=== PATIENT | female | born 1945 | race Caucasian/White ===

== ENCOUNTER 2016-10-11 02:51 | Inpatient (IN) | payer OTHER, BC ==
[~2016-10-11 02:51] MED LIST: BUPIVACAINE HCL/PF 0.5% (5MG/ML) 10 ML VIAL IJ ONE
--- NOTE | 2016-10-11 03:12 | PDOC ---
History of Present Illness - General Stated Complaint: ABD PAIN Time Seen by Provider: 10/11/16 03:10 Past History - Past Medical History Allergies/Adverse Reactions: Allergies Allergy/AdvReac Type Severity Reaction Status Date / Time bupropion HCl [From Zyban] Allergy Intermediate Hives Unverified 02/24/15 10:35 paroxetine HCl [From Paxil] AdvReac Intermediate Unverified 02/24/15 10:12 Home Medications: Ambulatory Orders Dicyclomine HCl [Bentyl] 10 mg PO TID 04/05/15 Acyclovir 30 gm TP TID 07/14/15 Anemia: No Asthma: No Cancer: No Cardiac Disorders: No CVA: No COPD: No CHF: No Dementia: No Diabetes: No GI Disorders: Yes (IBS,DIVERTICULOSIS,GASTRIC FUNDIC POLYPS,ESOPHAGEAL ULCER) Disorders: Yes (OCCA. VAGINAL HERPES) HTN: No Hypercholesterolemia: Yes Liver Disease: Yes (FATTY LIVER) Seizures: No Thyroid Disease: No - Psycho/Social/Smoking Cessation Hx Smoking History: Current every day smoker Have you smoked in the past 12 months: Yes Number of Cigarettes Smoked Daily: 6 'Breaking Loose' booklet given: 07/17/15 Hx Alcohol Use: No Drug/Substance Use Hx: No Substance Use Type: None Hx Substance Use Treatment: No
--- NOTE | 2016-10-11 03:28 | PDOC ---
History of Present Illness - General History Source: Patient Exam Limitations: No Limitations - History of Present Illness Initial Comments: 10/11/16 03:36 The patient is a 70 year old female with a significant past medical history of IBS who presents to the ED with complaints of abdominal pain for 2 days. The patient reports she cheated on her 2 days ago and since reports epigastric pain radiating to her back that is worsened when laying down. She als reports nausea, dry heaving, and slight shortness of breath associated with present symptoms. She reports multiple episodes of soft stool this morning. Patient states she typically gets these episodes one a year. Denies vomiting or diarrhea. Denies fevers or chills. Denies chest pain and shortness of breath. Denies any other symptoms. Surgical hx: Esophageal hernia repair <Bisi Edwards - Last Filed: 10/11/16 03:36> - General History Source: Patient <Lauri Up - Last Filed: 10/15/16 19:42> - General Chief Complaint: Pain Stated Complaint: ABD PAIN Time Seen by Provider: 10/11/16 03:10 Past History <Bisi Edwards - Last Filed: 10/11/16 03:36> - Past Medical History Anemia: No Asthma: No Cancer: No Cardiac Disorders: No CVA: No COPD: No CHF: No Dementia: No Diabetes: No GI Disorders: Yes (IBS,diverticulosis, gastric fundic polyps, esophageal ulcer) Disorders: Yes (OCCA. Vaginal herpes) HTN: No Hypercholesterolemia: Yes Liver Disease: Yes (Fatty liver) Seizures: No Thyroid Disease: No - Immunization History Immunization Up to Date: No - Psycho/Social/Smoking Cessation Hx Suicidal Ideation: No Smoking History: Current every day smoker Have you smoked in the past 12 months: Yes Number of Cigarettes Smoked Daily: 6 Information on smoking cessation initiated: No 'Breaking Loose' booklet given: 07/17/15 Hx Alcohol Use: No Drug/Substance Use Hx: No Substance Use Type: None Hx Substance Use Treatment: No <Lauri Up - Last Filed: 10/15/16 19:42> - Past Medical History Allergies/Adverse Reactions: Allergies Allergy/AdvReac Type Severity Reaction Status Date / Time bupropion HCl [From Zyban] Allergy Intermediate Hives Verified 10/11/16 03:17 omeprazole [From Prilosec] AdvReac Intermediate Vomiting Verified 10/11/16 03:34 omeprazole magnesium AdvReac Intermediate Vomiting Verified 10/11/16 03:34 [From Prilosec] paroxetine HCl [From Paxil] AdvReac Intermediate Verified 10/11/16 03:17 Home Medications: Ambulatory Orders Dicyclomine HCl [Bentyl] 10 mg PO TID 04/05/15 Acyclovir 30 gm TP TID 07/14/15 Review of Systems - Review of Systems Able to Perform ROS?: Yes Comments:: 10/11/16 03:37 CONSTITUTIONAL: Absent: fever, chills, diaphoresis, generalized weakness, malaise, loss of appetite HEENT: Absent: rhinorrhea, nasal congestion, throat pain, throat swelling, difficulty swallowing, mouth swelling, ear pain, eye pain, visual Changes CARDIOVASCULAR: Absent: chest pain, syncope, palpitations, irregular heart rate, lightheadedness , peripheral edema RESPIRATORY: + shortness of breath Absent: cough, shortness of breath, dyspnea with exertion, orthopnea, wheezing, stridor, hemoptysis GASTROINTESTINAL: + abdominal pain, nausea, dry heaving Absent: abdominal pain, abdominal distension, nausea, vomiting, diarrhea, constipation, melena, hematochezia GENITOURINARY: Absent: dysuria, frequency, urgency, hesitancy, hematuria, flank pain, genital pain MUSCULOSKELETAL: + back pain Absent: myalgia, arthralgia, joint swelling SKIN: Absent: rash, itching, pallor HEMATOLOGIC/IMMUNOLOGIC: Absent: easy bleeding, easy bruising, lymphadenopathy, frequent infections ENDOCRINE: Absent: unexplained weight gain, unexplained weight loss, heat intolerance, cold intolerance NEUROLOGIC: + dizziness Absent: headache, focal weakness or paresthesias, dizziness, unsteady gait, seizure, mental status changes, bladder or bowel incontinence PSYCHIATRIC: Absent: anxiety, depression, suicidal or homicidal ideation, hallucinations. All Other Systems: Reviewed and Negative <Bisi Edwards - Last Filed: 10/11/16 03:36> *Physical Exam - Vital Signs Last Vital Signs Temp Pulse Resp BP Pulse Ox 97.7 F 55 L 20 128/57 97 10/11/16 03:17 10/11/16 03:17 10/11/16 03:17 10/11/16 03:17 10/11/16 03:17 - Physical Exam Comments: 10/11/16 03:37 GENERAL: Well developed, well nourished. Awake and alert. No acute distress. HEENT: Normocephalic, atraumatic. PERRLA, EOMI. No conjunctival pallor. Sclera are non- icteric. Moist mucous membranes. Oropharynx is clear. NECK: Supple. Full ROM. No JVD. Carotid pulses 2+ and symmetric, without bruits. No thyromegaly. NCo lymphadenopathy. CARDIOVASCULAR: Regular rate and rhythm. No murmurs, rubs, or gallops. Distal pulses are 2+ and symmetric. PULMONARY: No evidence of respiratory distress. Lungs clear to auscultation bilaterally. No wheezing, rales or rhonchi. ABDOMINAL:+ Mildly tender Soft. Non-distended. No rebound or guarding. No organomegaly. Normoactive bowel sounds. MUSCULOSKELETAL Normal range of motion at all joints. No bony deformities or tenderness. No CVA tenderness. EXTREMITIES: No cyanosis. No clubbing. No edema. No calf tenderness. SKIN: Warm and dry. Normal capillary refill. No rashes. No jaundice. NEUROLOGICAL: Alert, awake, appropriate. Cranial nerves 2-12 intact. No deficits to light touch and temperature in face, upper extremities and lower extremities. No motor deficits in the in face, upper extremities and lower extremities. Normoreflexic in the upper and lower extremities. Normal speech. Toes are down- going bilaterally. Gait is normal without ataxia. PSYCHIATRIC: Cooperative. Good eye contact. Appropriate mood and affect. <Bisi Edwards - Last Filed: 10/11/16 03:36> - Vital Signs Last Vital Signs Temp Pulse Resp BP Pulse Ox 97.7 F 55 L 20 128/57 97 10/11/16 03:17 10/11/16 03:17 10/11/16 03:17 10/11/16 03:17 10/11/16 03:17 <Lauri Up - Last Filed: 10/15/16 19:42> ED Treatment Course - LABORATORY CBC & Chemistry Diagram: 10/15/16 07:00 10/15/16 07:00 <Lauri Up - Last Filed: 10/15/16 19:42> Medical Decision Making - Medical Decision Making 10/15/16 19:42 Dr. Up: The scribe's documentation has been prepared under my direction and personally reviewed by me in its entirery. I confirm that the note above accurately reflects all work, treatment, procedures, and medical decision making performed by me. <Lauri Up - Last Filed: 10/15/16 19:42> *DC/Admit/Observation/Transfer - Attestations Physician Attestion: 10/11/16 03:37 Documentation prepared by Bisi Edwards, acting as medical program specialist for Lauri Up MD <Bisi Edwards - Last Filed: 10/11/16 03:36> <Lauri Up - Last Filed: 10/15/16 19:42> Diagnosis at time of Disposition: Cholecystectomy planned - Discharge Dispostion Condition at time of disposition: Stable
[2016-10-11] MEDS ORDERED: ONDANSETRON 4 MG/2 ML VIAL IVPUSH STA ×2 (03:32→06:01)
[2016-10-11] MEDS ORDERED: SODIUM CHLORIDE 1,000 ML IV STA ×2 (03:32→11:49)
[2016-10-11] MEDS ORDERED: morphine CARPU-JECT 2 MG/1 ML DISP.SYRIN IVPUSH ONE (03:32)
[2016-10-11] MEDS ORDERED: morphine CARPU-JECT 4 MG/1 ML DISP.SYRIN ONE ×2 (03:47→12:04)
[2016-10-11] MEDS ORDERED: ONDANSETRON 4 MG/2 ML VIAL ONE ×3 (03:47→08:42)
[2016-10-11 03:49] LABS: BASOPHIL 0.6 % (0-2.0); EOSINOPHIL 0.1 % (0-4.5); MCH 29.3 pg (25.7-33.7); MCHC 32.9 g/dl (32.0-36.0); MEAN CELL VOLUME 89.2 fl (80-96); NEUTROPHILS 85.9 % (42.8-82.8); PLATELET COUNT 222 K/MM3 (134-434); RDW 14.1 % (11.6-15.6); WHITE BLOOD COUNT 12.7 K/mm3 (4.0-10.0)
[2016-10-11 04:01] LABS: INR 0.97 (0.82-1.09); PROTHROMBIN TIME (PATIENT) 10.7 SEC (9.98-11.88)
[2016-10-11 04:24] LABS: ALBUMIN 3.9 g/dl (3.4-5.0); AMYLASE 41 U/L (25-115); ANION GAP 12 (8-16); BILIRUBIN,TOTAL 0.5 mg/dL (0.2-1.0); CALCIUM 9.7 mg/dL (8.5-10.1); CO2 26 mmol/L (21-32); CREATININE 0.7 mg/dL (0.55-1.02); GLUCOSE,RANDOM 127 mg/dL (74-106); MAGNESIUM 1.9 mg/dL (1.8-2.4); SGOT/AST 26 U/L (15-37); SGPT/ALT 43 U/L (12-78)
[2016-10-11 04:25] LABS: ALK PHOS 165 U/L (45-117); TROPONIN I < 0.02 ng/ml (0.00-0.05)
[2016-10-11] MEDS ORDERED: PANTOPRAZOLE SODIUM 40 MG in SODIUM CHLORIDE 100 ML IVPB ONE (04:46)
[2016-10-11] MEDS ORDERED: PANTOPRAZOLE SODIUM 100 ML IVPB ONE (05:25)
[2016-10-11] MEDS ORDERED: HYDROmorphone HCL CARPU-JECT 1 MG/1 ML DISP.SYRIN IVPUSH ONE (06:01)
[2016-10-11] MEDS ORDERED: HYDROmorphone HCL CARPU-JECT 1 MG/1 ML DISP.SYRIN ONE (06:14)
[2016-10-11 06:31] LABS: URINE APPEARANCE CLEAR; URINE BILIRUBIN NEGATIVE (NEGATIVE); URINE BLOOD NEGATIVE (NEGATIVE); URINE COLOR STRAW; URINE GLUCOSE (UA) NEGATIVE (NEGATIVE); URINE KETONE 2+ (NEGATIVE); URINE LEUK ESTERASE NEGATIVE (NEGATIVE); URINE NITRITE NEGATIVE (NEGATIVE); URINE PROTEIN NEGATIVE (NEGATIVE); URINE UROBILINOGEN NEGATIVE mg/dL (0.2-1.0)
[2016-10-11] MEDS ORDERED: ONDANSETRON 4 MG/2 ML VIAL IVPUSH ONE (08:40)
[2016-10-11] MEDS ORDERED: ACETAMINOPHEN 1000 MG/100 ML VIAL (NON FORMULARY) IVPB ONE (08:40)
[2016-10-11] MEDS ORDERED: ACETAMINOPHEN INJECTION 100 ML IVPB ONE (08:42)
--- NOTE | 2016-10-11 09:20 | PDOC ---
*Physical Exam - Vital Signs Last Vital Signs Temp Pulse Resp BP Pulse Ox 98.6 F 74 18 140/74 97 10/11/16 07:15 10/11/16 07:15 10/11/16 07:15 10/11/16 07:15 10/11/16 07:15 ED Treatment Course - LABORATORY CBC & Chemistry Diagram: 10/11/16 03:45 10/11/16 03:45 - ADDITIONAL ORDERS Additional order review: Laboratory Results 10/11/16 10/11/16 10/11/16 06:25 03:45 03:45 INR 0.97 Sodium 140 Potassium 3.7 Chloride 102 Carbon Dioxide 26 Anion Gap 12 BUN 22 H Creatinine 0.7 Creat Clearance w eGFR > 60 Random Glucose 127 H Calcium 9.7 Magnesium 1.9 Total Bilirubin 0.5 AST 26 ALT 43 Alkaline Phosphatase 165 H Creatine Kinase 103 Troponin I < 0.02 Total Protein 7.0 Albumin 3.9 Total Amylase 41 Lipase 100 Urine Color Straw Urine Appearance Clear Urine pH 6.0 Urine Protein Negative Urine Glucose (UA) Negative Urine Ketones 2+ H Urine Blood Negative Urine Nitrite Negative Urine Bilirubin Negative Urine Urobilinogen Negative Ur Leukocyte Esterase Negative 10/11/16 03:45 RBC 4.11 MCV 89.2 MCHC 32.9 RDW 14.1 MPV 8.0 Neutrophils % 85.9 H Lymphocytes % 11.4 Monocytes % 2.0 L Eosinophils % 0.1 Basophils % 0.6 - Medications Given in the ED: ED Medications Discontinued Medications Generic Name Dose Route Start Last Admin Trade Name Libertad PRN Reason Stop Dose Admin Acetaminophen 1,000 mg 10/11/16 08:40 10/11/16 08:48 Ofirmev Injection - IVPB 10/11/16 08:41 1,000 mg ONCE ONE Administration Hydromorphone HCl 0.5 mg 10/11/16 06:01 10/11/16 06:26 Dilaudid Injection - IVPUSH 10/11/16 06:02 0.5 mg ONCE ONE Administration Sodium Chloride 1,000 mls @ 1,000 mls/hr 10/11/16 03:32 10/11/16 03:57 Normal Saline - IV 10/11/16 04:31 1,000 mls/hr ASDIR STA Administration Pantoprazole Sodium 40 mg/ 100 mls @ 200 mls/hr 10/11/16 04:46 10/11/16 05:31 Sodium Chloride IVPB 10/11/16 05:15 200 mls/hr ONCE ONE Administration Morphine Sulfate 2 mg 10/11/16 03:32 10/11/16 03:56 Morphine Injection - IVPUSH 10/11/16 03:33 2 mg ONCE ONE Administration Ondansetron HCl 4 mg 10/11/16 03:32 10/11/16 03:57 Zofran Injection IVPUSH 10/11/16 03:33 4 mg ONCE STA Administration Ondansetron HCl 4 mg 10/11/16 06:01 10/11/16 06:27 Zofran Injection IVPUSH 10/11/16 06:02 4 mg ONCE STA Administration Ondansetron HCl 4 mg 10/11/16 08:40 10/11/16 08:48 Zofran Injection IVPUSH 10/11/16 08:41 4 mg ONCE ONE Administration Medical Decision Making - Medical Decision Making 10/11/16 09:19 Patient is a 70F signed out to me from night team, Dr. Up. US has returned stating: mildly distended gallbladder w/ multiple calculi. No evidence of choclecystitis. 10/11/16 09:48 I have discussed the US findings with the patient. She states that she is still in pain. GI dr: Ravin Lang at [facility] No gen surgeon Have paged Dr. Lang and am awaiting call back. Patient had + sonographic nichole sign. Exam revealed RUQ tenderness. 10/11/16 10:56 I have spoken with Dr. Christianson and he has accepted admission to do cholecytectomy tonight. Will admit to hospitalist and consult him. 10/11/16 11:00 Surgery and admitting team want a dose of Zosyn in ER, T+S, PT, PTT, INR. I have ordered all of the mentioned. *DC/Admit/Observation/Transfer Diagnosis at time of Disposition: Cholecystectomy planned - Discharge Dispostion Condition at time of disposition: Stable Admit: Yes - Referrals Referrals: Ravin Lang [Primary Care Provider] - - Patient Instructions - Post Discharge Activity
--- NOTE | 2016-10-11 09:36 | PDOC ---
Attending Attestation - Resident Resident Name: Kenney Love - ED Attending Attestation I have performed the following: I have examined & evaluated the patient, The case was reviewed & discussed with the resident, I agree w/resident's findings & plan, Exceptions are as noted - HPI HPI: 10/11/16 09:31 70 yo F with h/o prior gallstones here with n/v abd pain. signed out to me by dr. vega. assumed care of pt at 8 am ( along with Dr. Love) .pt pending ruq ultrasound. followed by Gi dr. corral at [place]. 9 PH [phone]. had seen surgeon many years ago, but at that time didn't feel she had severe enough sxs to warrant cholecystectomy. 10/11/16 09:54 - Physicial Exam PE: 10/11/16 09:33 on exam awake alert, lungs clear , heart RRR no mrg abd soft RUQ ttp, no rebound no guarding. ND skin warm and dry. ext wwp. 10/11/16 09:56 - Medical Decision Making 10/11/16 09:34 await labs gb us, jolynn admit due to persistant pain 10/11/16 09:56 pt ultrasound with large gallstones, no wall thickening or signs of cholecystitis. ct reviewed, concerning for cholecystitis. elevated wbc 14. plan consult surgery , admit to medicine pt pcp not here. will contact pt GI. Heart Score/ECG Review #1 ECG reviewed & interpreted by me at: 11:40 General ECG Interpretation: Sinus Rhythm, Normal Rate (55), Normal Intervals, No acute ischemic changes
[2016-10-11] MEDS ORDERED: PIPERACILLIN/TAZOB 3.375 GM/50 ML PRE-DOCKED IV ONE (10:58)
[2016-10-11] MEDS ORDERED: PIPERACILLIN/TAZOB 3.375 GM 50 ML IVPB ONE (11:09)
[2016-10-11] MEDS ORDERED: morphine CARPU-JECT 4 MG/1 ML DISP.SYRIN IVPUSH PRN ×3 (11:16→17:55)
[2016-10-11] MEDS ORDERED: ONDANSETRON 4 MG/2 ML VIAL IVPUSH PRN ×2 (11:18→17:55)
--- NOTE | 2016-10-11 11:18 | HP ---
Admitting History and Physical - Admission Chief Complaint: abdominal pain History of Present Illness: 70F with history of gall stones presents to the ED with a 1 day history of abdominal pain in the RUQ. she states this is similar to pain she has had in the past. She denies vomiting fevers chills chest pain or shortness of breath. States she had some dry heraving. Pain resolved with pain medications per patient. She denies all other symptoms and has no other complaints. She states she has been eating a high fat low carbohydrate "Atkins diet" for her gallbladder. Patient stopped taking her statin a few months ago because she has "trouble digesting" it. History Source: Patient Limitations to Obtaining History: Clinical Condition - Past Medical History Additional Past Medical History: IBS,diverticulosis, gastric fundic polyps, esophageal ulcer genital herpes GERD HLD - Past Surgical History Additional Past Surgical History: esophageal hernia repair C section - Smoking History Smoking history: Current every day smoker Have you smoked in the past 12 months: Yes Aproximately how many cigarettes per day: 6 - Alcohol/Substance Use Hx Alcohol Use: No History of Substance Use: reports: None Home Medications - Allergies Allergies/Adverse Reactions: Allergies Allergy/AdvReac Type Severity Reaction Status Date / Time bupropion HCl [From Zyban] Allergy Intermediate Hives Verified 10/11/16 03:17 omeprazole [From Prilosec] AdvReac Intermediate Vomiting Verified 10/11/16 03:34 omeprazole magnesium AdvReac Intermediate Vomiting Verified 10/11/16 03:34 [From Prilosec] paroxetine HCl [From Paxil] AdvReac Intermediate Verified 10/11/16 03:17 - Home Medications Home Medications: Ambulatory Orders Dicyclomine HCl [Bentyl] 10 mg PO TID 04/05/15 Acyclovir 30 gm TP TID 07/14/15 Family Disease History - Family Disease History Family Disease History: CA: Father (brain tumor ), Mother (colon ) Review of Systems - Review of Systems Constitutional: reports: Loss of Appetite Eyes: reports: No Symptoms HENT: reports: No Symptoms Neck: reports: No Symptoms Cardiovascular: reports: No Symptoms Respiratory: reports: No Symptoms Gastrointestinal: reports: Abdominal Pain, Indigestion, Nausea, Other ("heart burn") Genitourinary: reports: No Symptoms Breasts: reports: No Symptoms Reported Musculoskeletal: reports: No Symptoms Integumentary: reports: No Symptoms Neurological: reports: No Symptoms Endocrine: reports: No Symptoms Hematology/Lymphatic: reports: No Symptoms Psychiatric: reports: Anxiety Physical Examination Vital Signs: Vital Signs Temperature 98.6 F 10/11/16 07:15 Pulse Rate 74 10/11/16 07:15 Respiratory Rate 18 10/11/16 07:15 Blood Pressure 140/74 10/11/16 07:15 O2 Sat by Pulse Oximetry (%) 97 10/11/16 07:15 Constitutional: Yes: Well Nourished, No Distress, Anxious Eyes: Yes: Conjunctiva Clear, EOM Intact HENT: Yes: Atraumatic, Normocephalic Neck: Yes: Supple, Trachea Midline Cardiovascular: Yes: Regular Rate and Rhythm Respiratory: Yes: Regular, CTA Bilaterally Gastrointestinal: Yes: Normal Bowel Sounds, Soft, Abdomen, Obese. No: Tenderness Renal/: Yes: WNL. No: CVA Tenderness - Left, CVA Tenderness - Right Musculoskeletal: Yes: WNL Extremities: Yes: WNL Neurological: Yes: Alert, Oriented ...Motor Strength: WNL Psychiatric: Yes: Alert, Oriented Labs: CBC, BMP 10/11/16 03:45 10/11/16 03:45 Imaging - Results Cat Scan: Report Reviewed, Image Reviewed Ultrasound: Report Reviewed, Image Reviewed EKG: Pending Assessment/Plan 70F presents to the ED with biliary colic. Problem list: Biliary colic h/o gallstones pre-diabetes leukocytosis hyperglycemia HLD IBS anxiety diverticulosis gastric fundic polyps, esophageal ulcer genital herpes GERD Plan: Admit to med surg surgery consult plan to go to OR today for cholecystectomy EKG pre-op coags type and screen NPO Verify home meds GI/VTE PPx pain control PRN Antiemetics PRN Leukocytosis-likely [id number] no signs or symptoms of infection. One dose of zosyn en route to the OR. hyperglycemia-prediabetes has good follow up with PMD will defer to PMD for hyperglycemia will do fingersticks q6h while NPO to trend BGM hold off in ISS coverage for now. 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 Case discussed with attending and medical team full H&P to follow. Visit type - Emergency Visit Emergency Visit: Yes Care time: The patient presented to the Emergency Department on the above date and was hospitalized for further evaluation of their emergent condition. - New Patient This patient is new to me today: Yes Date on this admission: 10/11/16 - Critical Care Critical Care patient: No
[2016-10-11 11:54] LABS: INR 0.98 (0.82-1.09); PROTHROMBIN TIME (PATIENT) 10.8 SEC (9.98-11.88)
[2016-10-11 11:57] LABS: ACTIVATED PTT 21.4 SECONDS (26.9-34.4)
[2016-10-11] MEDS ORDERED: SODIUM CHLORIDE 1,000 ML IV SCH (12:00)
--- NOTE | 2016-10-11 12:45 | CONSULT ---
- Consultation REQUESTING PROVIDER: Twin METCALF CONSULT REQUEST: We have been asked to surgically evaluate this patient for ( specify). PCP:Olivia Dhaliwal HISTORY OF PRESENT ILLNESS: CTSP who is a 70 y/o female w/known cholelithiasis who presented w/ n/v and RUQ abdominal pain; she has had this in the past and told she " maybe needed surgery " which she did not; she came to the ER # after eating steak and experiencing the above c/o's; she denies dark urine/light stools or any other GI c/o; pain is stabbing and unrelenting and associated w/ nausea and belching; it radiated to her back and right shoulder. PMHx: GERD/refulx/IBS PSHx: C-S Home Medications Medication Instructions Recorded Dicyclomine HCl [Bentyl] 10 mg PO TID 04/05/15 Acyclovir 30 gm TP TID 07/14/15 Allergies Allergy/AdvReac Type Severity Reaction Status Date / Time bupropion HCl [From Zyban] Allergy Intermediate Hives Verified 10/11/16 03:17 omeprazole [From Prilosec] AdvReac Intermediate Vomiting Verified 10/11/16 03:34 omeprazole magnesium AdvReac Intermediate Vomiting Verified 10/11/16 03:34 [From Prilosec] paroxetine HCl [From Paxil] AdvReac Intermediate Verified 10/11/16 03:17 REVIEW OF SYSTEMS: as above only PHYSICAL EXAM: GENERAL: Awake, alert, and fully oriented, in no acute distress. HEAD: Normal with no signs of trauma. EYES: sclera anicteric, conjunctiva clear. NECK: Normal ROM, supple without lymphadenopathy, JVD, or masses. ABDOMEN: Soft, tender to deep palpation in the RUQ w/inspiratory arrest, not distended, normoactive bowel sounds, no guarding, no rebound, no masses. No organomegaly. No hernias MUSCULOSKELETAL: Normal ROM at all joints. No bony deformities or tenderness. No CVA tenderness. UPPER EXTREMITIES: 2+ pulses, warm, well-perfused. No cyanosis. Cap refill <2 seconds. No peripheral edema. LOWER EXTREMITIES: 2+ pulses, warm, well-perfused. No calf tenderness. No peripheral edema. NEUROLOGICAL: Normal speech, gait not observed. PSYCH: Cooperative. Good eye contact. Appropriate mood and affect. SKIN: Warm, dry, normal turgor, no rashes or lesions noted. Vital Signs Temperature 98.6 F 10/11/16 07:15 Pulse Rate 74 10/11/16 07:15 Respiratory Rate 18 10/11/16 07:15 Blood Pressure 140/74 10/11/16 07:15 O2 Sat by Pulse Oximetry (%) 97 10/11/16 07:15 Lab Results WBC 12.7 K/mm3 (4.0-10.0) H 10/11/16 03:45 RBC 4.11 M/mm3 (3.60-5.2) 10/11/16 03:45 Hgb 12.0 GM/dL (10.7-15.3) 10/11/16 03:45 Hct 36.6 % (32.4-45.2) 10/11/16 03:45 MCV 89.2 fl (80-96) 10/11/16 03:45 MCHC 32.9 g/dl (32.0-36.0) 10/11/16 03:45 RDW 14.1 % (11.6-15.6) 10/11/16 03:45 Plt Count 222 K/MM3 (134-434) 10/11/16 03:45 Sodium 140 mmol/L (136-145) 10/11/16 03:45 Potassium 3.7 mmol/L (3.5-5.1) 10/11/16 03:45 Chloride 102 mmol/L (98-107) 10/11/16 03:45 Carbon Dioxide 26 mmol/L (21-32) 10/11/16 03:45 Anion Gap 12 (8-16) 10/11/16 03:45 BUN 22 mg/dL (7-18) H 10/11/16 03:45 Creatinine 0.7 mg/dL (0.55-1.02) 10/11/16 03:45 Random Glucose 127 mg/dL (74-106) H 10/11/16 03:45 Calcium 9.7 mg/dL (8.5-10.1) 10/11/16 03:45 INR 0.98 (0.82-1.09) 10/11/16 11:20 CT scan and US reviewed; w/u to date reviewed. IMP: acute cholecystitis; cholelithiasis PLAN: Discussion of admission and lap wm possible open as definitive tx.; r/b /t alternatives d/w the patient who wishes to proceed. Finn Christianson MD FACS Visit type - Case Type Case Type: ED Admission - Emergency Emergency Visit: Yes ED Registration Date: 10/11/16 Care time: The patient presented to the Emergency Department on the above date and was hospitalized for further evaluation of their emergent condition. - New patient This patient is new to me today: Yes Date on this admission: 10/11/16 - Critical Care Critical Care patient: No
[2016-10-11] MEDS ORDERED: PROPOFOL 20 ML ONE ×3 (13:24→16:53)
--- NOTE | 2016-10-11 13:45 | HP ---
CHIEF COMPLAINT: abdominal pain radiating to back PCP: HISTORY OF PRESENT ILLNESS: 70 y/o F with PMH IBS, gallstones, past episodes of biliary colic (dx by Dr. Lang, [facility]), who presents to ED with RUQ abdominal pain. As per pt, at 6pm yesterday, she took Bentyl for IBS, and then at 5 am this morning, pt developed sudden, constant RUQ pain radiating to the back. Pain is 10/10, colicky, and is associated with dry heaving and nausea, and is not related to food. Her movement is limited and it is difficult for her to lay on her back comfortably. Pain was not relieved by Tums, Mili [place] or Tylenol and is accompanied by SOB and palpitations. Episode is similar to pain in the past, which would subside within 4-5 hours. However, this episode was more severe, lasting longer, so pt decided to come to the hospital. Pt follows with GI, Dr. Lang from [facility] and has been told that her past episodes were not severe enough to warrant cholecystectomy. ER course was notable for: (1) morphine, dilaudid (2) Abd/pelvis CT: abnormal GB, r/o cholecystitis, recommend U/S (3) RUQ U/S: mildly distended GB with multiple calculi, no sonographic evidence of acute cholecystitis Recent Travel: no PAST MEDICAL HISTORY: IBS, gallstones, past biliary colic episodes, pre-diabetes PAST SURGICAL HISTORY: esophageal hernia repair, Social History: Smoking: smokes half pack per day for 20 years Alcohol: denies Drugs: denies Family History: Allergies bupropion HCl [From Zyban] Allergy (Intermediate, Verified 10/11/16 03:17) Hives omeprazole [From Prilosec] Adverse Reaction (Intermediate, Verified 10/11/16 03: 34) Vomiting omeprazole magnesium [From Prilosec] Adverse Reaction (Intermediate, Verified 03:34) Vomiting paroxetine HCl [From Paxil] Adverse Reaction (Intermediate, Verified 10/11/16 03 :17) nausea, vomiting HOME MEDICATIONS: Home Medications Medication Instructions Recorded Dicyclomine HCl [Bentyl] 10 mg PO TID 04/05/15 Acyclovir 30 gm TP TID 07/14/15 Note: Pt also takes 11 supplements, of which she remembers: B12, D3, Co Q10, probiotics, DHEA. Used to take Crestor but irritates her stomach Pharmacy: [facility] [place] [phone] REVIEW OF SYSTEMS CONSTITUTIONAL: Absent: fever, chills, diaphoresis, generalized weakness, malaise, loss of appetite, weight change HEENT: Absent: rhinorrhea, nasal congestion, throat pain, throat swelling, difficulty swallowing, mouth swelling, ear pain, eye pain, visual changes CARDIOVASCULAR: +palpitations Absent: chest pain, syncope, palpitations, irregular heart rate, lightheadedness , peripheral edema RESPIRATORY: +shortness of breath Absent: cough, shortness of breath, dyspnea with exertion, orthopnea, wheezing, stridor, hemoptysis GASTROINTESTINAL: +abdominal pain Absent: abdominal pain, abdominal distension, nausea, vomiting, diarrhea, constipation, melena, hematochezia GENITOURINARY: Absent: dysuria, frequency, urgency, hesitancy, hematuria, flank pain, genital pain MUSCULOSKELETAL: Absent: myalgia, arthralgia, joint swelling, back pain, neck pain SKIN: Absent: rash, itching, pallor HEMATOLOGIC/IMMUNOLOGIC: Absent: easy bleeding, easy bruising, lymphadenopathy, frequent infections ENDOCRINE: Absent: unexplained weight gain, unexplained weight loss, heat intolerance, cold intolerance NEUROLOGIC: Absent: headache, focal weakness or paresthesias, dizziness, unsteady gait, seizure, mental status changes, bladder or bowel incontinence PSYCHIATRIC: Absent: anxiety, depression, suicidal or homicidal ideation, hallucinations. PHYSICAL EXAMINATION GENERAL: Awake, alert, and fully oriented, in acute distress HEAD: Normal with no signs of trauma. EYES: Pupils equal, round and reactive to light, extraocular movements intact, sclera anicteric, conjunctiva clear. EARS, NOSE, THROAT: oropharynx clear without exudates. Moist mucous membranes. NECK: Normal range of motion, no JVD LUNGS: Breath sounds equal, clear to auscultation bilaterally. No wheezes, and no crackles. No accessory muscle use. HEART: Regular rate and rhythm, normal S1 and S2 without murmur, rub or gallop. ABDOMEN: RUQ tender to palpation, no distension, + Art's sign, voluntary guarding, +BS MUSCULOSKELETAL: Normal range of motion at all joints. No bony deformities or tenderness. No CVA tenderness. UPPER EXTREMITIES: 2+ radial pulses, warm, well-perfused LOWER EXTREMITIES: 2+ posterior tibial pulses, warm, well-perfused. No calf tenderness. No peripheral edema. NEUROLOGICAL: Cranial nerves II-XII intact. Laboratory Results - last 24 hr 10/11/16 10/11/16 11:20 11:20 INR 0.98 PTT (Actin FS) 21.4 L Blood Type O POSITIVE Antibody Screen Negative ASSESSMENT/PLAN: 70 y/o F w/ PMH IBS, gallstones, past episodes of biliary colic, who presents to ED with RUQ pain radiating to the back. Pt is admitted for biliary colic, cholelithiasis 1. Biliary colic, cholelithiasis -RUQ abdominal pain, radiating to back -Abdomen/pelvis CT: abnormal GB, r/o cholecystitis, recommend U/S -RUQ U/S: mildly distended GB with multiple calculi, no sonographic evidence of acute cholecystitis -Leukocytosis 12.1, afebrile, ALP 165 -NPO -Surgery consulted: Dr. Christianson -Yareli wm to be performed 10/11/16 afternoon -Zofran PRN -Morphine 2mg IVP q4 PRN -Type and screen, PT/PTT, INR ordered -Zosyn 3.375 mg given 1x in ED -F/u CBC, BMP, Mg, Phosph 2. IBS -Currently holding Bentyl (continue after surgery) 3. HLD -Pt stopped taking Crestor, since it irritated her stomach -Has not taken it recently 4. Pre-diabetic (as per pt) -BGM q6 -Hold ISS 5. DVT/ GI prophylaxis -SCD's -Heparin 5000 SQ q8 -Protonix 40mg F/E/N IV NS 83 mls/hr Monitor electrolytes NPO Visit type - Emergency Visit Emergency Visit: Yes ED Registration Date: 10/11/16 Care time: The patient presented to the Emergency Department on the above date and was hospitalized for further evaluation of their emergent condition. - New Patient This patient is new to me today: Yes Date on this admission: 10/11/16 - Critical Care Critical Care patient: No
[2016-10-11] MEDS ORDERED: DICYCLOMINE HCL 10 MG CAPSULE PO SCH (14:00)
[2016-10-11 14:05] VITALS: BMI 26.8
[2016-10-11] MEDS ORDERED: PNEUMOC 13-VAL CONJ-DIP CRM/PF 0.5 ML DISP.SYRIN IM ONE (14:05)
[2016-10-11] MEDS ORDERED: BUPIVACAINE HCL/PF 0.5% (5MG/ML) 10 ML VIAL ONE (14:10)
[2016-10-11] MEDS ORDERED: BUPIVACAINE HCL/PF 0.5% (5MG/ML) 10 ML VIAL IJ ONE (15:00)
[2016-10-11] MEDS ORDERED: VECURONIUM BROMIDE 10 MG VIAL ONE (15:18)
[2016-10-11] MEDS ORDERED: SODIUM CHLORIDE 0.9% P/F 10 ML VIAL IJ ONE (15:18)
[2016-10-11] MEDS ORDERED: NEOSTIGMINE METHYLSULFATE 0.5 MG/ML - 10 ML MDV ONE (16:33)
[2016-10-11] MEDS ORDERED: GLYCOPYRROLATE 0.2 MG/1 ML VIAL ONE ×2 (16:35→16:36)
[2016-10-11] MEDS ORDERED: oxyCODONE HCL 5 MG TABLET PO PRN (17:17)
[2016-10-11] MEDS ORDERED: PROMETHAZINE HCL 25 MG/1 ML VIAL IVPUSH PRN (17:22)
--- NOTE | 2016-10-11 17:24 | SURG ---
Surgery Housekeeper Manager Note Housekeeper Manager: Laina Leblanc PA-C Date of Service: 10/11/16 Diagnosis: acute cholecystitis Procedure: laparoscopic cholecystectomy with lysis of adhesions I was present for the entirety of the operative procedure. For further detail, please refer to operative report. Visit type - Case Type Case Type: ED Admission - Emergency Emergency Visit: Yes ED Registration Date: 10/11/16 Care time: The patient presented to the Emergency Department on the above date and was hospitalized for further evaluation of their emergent condition. - New patient This patient is new to me today: Yes Date on this admission: 10/11/16 - Critical Care Critical Care patient: No
--- NOTE | 2016-10-11 17:28 | OP ---
Operative Note - Note: Operative Date: 10/11/16 Pre-Operative Diagnosis: acute cholecystis ; cholelithiasis Operation: lap wm Findings: acute cholecystitis/cholelithiasis Surgeon: Finn Christianson Tourist Information Officer: Laina Leblanc Anesthesia: General Specimens Removed: gallbladder and contents Estimated Blood Loss (mls): 100 Drains & Tubes with Location: 10 mm RIKKI
[2016-10-11] MEDS ORDERED: LACTATED RINGERS SOLUTION 1,000 ML IV SCH (17:30)
--- NOTE | 2016-10-11 17:38 | PN ---
Teaching Attending Note Name of Resident: Daniela Martinez ATTENDING PHYSICIAN STATEMENT I saw and evaluated the patient. I reviewed the resident's note and discussed the case with the resident. I agree with the resident's findings and plan as documented. pt is seen s/p cholecystectomy SUBJECTIVE:currently drowsy. states she has no pain. had episode of acute cholecystitis in the past several years ago was treated but there was no discussion of having her gallbladder removed. denies CP, SOB< fever, chills, N/V /C/D OBJECTIVE: Last Vital Signs Temp Pulse Resp BP Pulse Ox 98.0 F 59 L 18 114/63 95 10/11/16 12:00 10/11/16 13:00 10/11/16 13:00 10/11/16 13:00 10/11/16 13:00 General lethargic but responds to verbal stimuli CV S1 S2 RRR no murmur/rub/gallop Lungs CTA B/L no wheezing/rales/rhonchi anteriorly ABdomen +distention, tenderness +RUQ drain in place. bandages over surgical incision ASSESSMENT AND PLAN: 70yo F wtih PMH IBS, GERD, dyslipidemia presented to the ER with RUQ x1day and found to have acute cholecystitis 1. Acute Cholecystitis- medicine admission. s/p laprascopic cholecystectomy with RIKKI drain placed. advance diet per surgery. no indication for abx at this time. received zosyn pre-op. cont IVF until maintaining good oral intake. pain and nausea control 2. Genital herpes- hold acycolvir at this time. confirm home meds. clarify if she takes prophylactic daily medications 3. DVT ppx- hep sq post-op
[2016-10-11] MEDS ORDERED: HEPARIN NA (PORCINE) 5,000 UNITS/ML 1ML VIAL SQ SCH (18:00)
[2016-10-11] MEDS: SODIUM CHLORIDE 1,000 ML IV SCH (18:15)
[2016-10-11] MEDS: HEPARIN NA (PORCINE) 5,000 UNITS/ML 1ML VIAL SQ SCH (21:23)
[2016-10-12] MEDS: SODIUM CHLORIDE 1,000 ML IV SCH (02:29)
[2016-10-12] MEDS: ACETAMINOPHEN 325 MG TABLET (FP) PO PRN ×2 (02:31→13:50)
[2016-10-12] MEDS: HEPARIN NA (PORCINE) 5,000 UNITS/ML 1ML VIAL SQ SCH ×3 (06:01→22:13)
[2016-10-12 07:44] LABS: MCH 29.8 pg (25.7-33.7); MCHC 32.9 g/dl (32.0-36.0); MEAN CELL VOLUME 90.6 fl (80-96); MEAN PLT VOLUME 8.5 fl (7.5-11.1); PLATELET COUNT 195 K/MM3 (134-434); RDW 14.1 % (11.6-15.6); WHITE BLOOD COUNT 14.5 K/mm3 (4.0-10.0)
[2016-10-12 07:56] LABS: ALBUMIN 2.8 g/dl (3.4-5.0); ANION GAP 8 (8-16); BILIRUBIN,TOTAL 1.5 mg/dL (0.2-1.0); CALCIUM 8.1 mg/dL (8.5-10.1); CO2 28 mmol/L (21-32); CREATININE 0.7 mg/dL (0.55-1.02); GLUCOSE,RANDOM 102 mg/dL (74-106); MAGNESIUM 1.6 mg/dL (1.8-2.4); PHOSPHOROUS 2.7 mg/dL (2.5-4.9); SGOT/AST 60 U/L (15-37); SGPT/ALT 88 U/L (12-78); TOT PROT 5.4 g/dl (6.4-8.2)
[2016-10-12 07:57] LABS: ALK PHOS 131 U/L (45-117)
--- NOTE | 2016-10-12 08:57 | PN ---
Progress Note (short form) - Note Progress Note: states pain has improved. urinated without difficulty. abdomen feels slightly distended. tolerating liquid diet with no assoc pain. denies Cp, SOB, fever, chills, N/V/C/D Current Medications Generic Name Dose Route Start Last Admin Trade Name Freq PRN Reason Stop Dose Admin Acetaminophen 650 mg 10/11/16 17:18 10/12/16 02:31 Tylenol - PO 650 mg Q6H PRN Administration FEVER OR PAIN Fentanyl 50 mcg 10/11/16 17:22 10/11/16 17:30 Sublimaze Injection - IVPUSH 10/14/16 17:23 50 mcg [id number] PRN Administration PAIN Heparin Sodium (Porcine) 5,000 unit 10/11/16 22:00 10/12/16 06:01 Heparin - SQ 5,000 unit TID NEHA Administration Sodium Chloride 1,000 mls @ 100 mls/hr 10/11/16 17:30 10/12/16 02:29 Normal Saline - IV 10/12/16 17:29 100 mls/hr ASDIR NEHA Administration Pantoprazole Sodium 100 mls @ 200 mls/hr 10/12/16 10:00 Protonix 40mg Ivpb (Pre-Docked) IVPB DAILY NEHA Morphine Sulfate 2 mg 10/11/16 17:55 Morphine Injection - IVPUSH Q4H PRN PAIN Ondansetron HCl 4 mg 10/11/16 17:55 Zofran Injection IVPUSH Q6H PRN NAUSEA AND/OR VOMITING Oxycodone HCl 5 mg 10/11/16 17:17 10/12/16 06:24 Roxicodone - PO 5 mg Q6H PRN Administration PAIN LEVEL 1-5 Oxycodone HCl 10 mg 10/11/16 17:17 Roxicodone - PO Q6H PRN PAIN LEVEL 6-10 Last Vital Signs Temp Pulse Resp BP Pulse Ox 99.5 F 101 H 18 105/49 98 10/12/16 06:39 10/12/16 06:39 10/12/16 06:39 10/12/16 06:39 10/11/16 21:00 General NAD CV S1 S2 RRR no murmur/rub/gallop Lungs CTA B/L no wheezing/rales/rhonchi anteriorly ABdomen +distention, mild diffuse tenderness. surgical dressing over trochar incisions. dried blood. +RUQ RIKKI drain with serosangenous drainage CBCD WBC 14.5 K/mm3 (4.0-10.0) H 10/12/16 06:00 RBC 3.69 M/mm3 (3.60-5.2) 10/12/16 06:00 Hgb 11.0 GM/dL (10.7-15.3) 10/12/16 06:00 Hct 33.4 % (32.4-45.2) 10/12/16 06:00 MCV 90.6 fl (80-96) 10/12/16 06:00 MCHC 32.9 g/dl (32.0-36.0) 10/12/16 06:00 RDW 14.1 % (11.6-15.6) 10/12/16 06:00 Plt Count 195 K/MM3 (134-434) 10/12/16 06:00 MPV 8.5 fl (7.5-11.1) 10/12/16 06:00 CMP Sodium 142 mmol/L (136-145) 10/12/16 06:00 Potassium 3.7 mmol/L (3.5-5.1) 10/12/16 06:00 Chloride 106 mmol/L (98-107) 10/12/16 06:00 Carbon Dioxide 28 mmol/L (21-32) 10/12/16 06:00 Anion Gap 8 (8-16) 10/12/16 06:00 BUN 9 mg/dL (7-18) D 10/12/16 06:00 Creatinine 0.7 mg/dL (0.55-1.02) 10/12/16 06:00 Creat Clearance w eGFR > 60 (>60) 10/12/16 06:00 Calcium 8.1 mg/dL (8.5-10.1) L 10/12/16 06:00 Total Bilirubin 1.5 mg/dL (0.2-1.0) H D 10/12/16 06:00 AST 60 U/L (15-37) H D 10/12/16 06:00 ALT 88 U/L (12-78) H D 10/12/16 06:00 Alkaline Phosphatase 131 U/L (45-117) H D 10/12/16 06:00 Total Protein 5.4 g/dl (6.4-8.2) L D 10/12/16 06:00 Albumin 2.8 g/dl (3.4-5.0) L D 10/12/16 06:00 ASSESSMENT AND PLAN: 70yo F wtih PMH IBS, GERD, dyslipidemia presented to the ER with RUQ x1day and found to have acute cholecystitis 1. Acute Cholecystitis-s/p laprascopic cholecystectomy with RIKKI drain placement . tolerating liquid diet. will maintain liquid diet at this time in setting of rising LFT. no indication for abx per surgery. drain management per surgery. pain and nausea control 2. elevated alk phos- she states she is currently being worked up for Pagets disease and has appt with specialist next week. trending up likely due to procedure yesterday. will monitor for now 3. Hypomagnesemia- Mg 800mg 4. DVT ppx- hep sq Visit type - Emergency Visit Emergency Visit: Yes ED Registration Date: 10/11/16 Care time: The patient presented to the Emergency Department on the above date and was hospitalized for further evaluation of their emergent condition. - New Patient This patient is new to me today: No - Critical Care Critical Care patient: No - Discharge Referral Referred to [facility] No
--- NOTE | 2016-10-12 09:36 | PN ---
Progress Note (short form) - Note Progress Note: POD #1 - s/p laparoscopic cholecystectomy under general anesthesia. Pt. doing well, resting comfortably in bed. No complaints. No apparent anesthetic complications noted. Continue current care.
[2016-10-12] MEDS ORDERED: MAGNESIUM OXIDE 400 MG TABLET (FP) PO ONE (09:45)
[2016-10-12] MEDS ORDERED: PANTOPRAZOLE SODIUM 100 ML IVPB SCH ×2 (10:00)
--- NOTE | 2016-10-12 11:35 | PN ---
Progress Note (short form) - Note Progress Note: Attending Surgeon POD#1 s/p lap wm VSS AF; tolerating diet;voided; minimal c/o pain; most likely from extensive ADILENE. abdo-soft; port site dressings c/d/i; RIKKI serosanguinous labs noted IMP:doing well PLAN: Advance diet; ambulate; continue drain; f/u labs. Finn Christianson MD FACS
[2016-10-12] MEDS: oxyCODONE HCL 5 MG TABLET PO PRN ×2 (13:49→22:13)
[2016-10-12] MEDS ORDERED: PT OWN MED DRAWER 7, Y5N ONE (18:40)
[2016-10-13] MEDS: HEPARIN NA (PORCINE) 5,000 UNITS/ML 1ML VIAL SQ SCH ×3 (06:38→22:10)
[2016-10-13 08:05] LABS: BASOPHIL 0.3 % (0-2.0); EOSINOPHIL 0.2 % (0-4.5); MCH 30.3 pg (25.7-33.7); MCHC 33.5 g/dl (32.0-36.0); MEAN CELL VOLUME 90.5 fl (80-96); MEAN PLT VOLUME 8.6 fl (7.5-11.1); NEUTROPHILS 84.2 % (42.8-82.8); PLATELET COUNT 181 K/MM3 (134-434); RDW 14.1 % (11.6-15.6); WHITE BLOOD COUNT 12.8 K/mm3 (4.0-10.0)
[2016-10-13 08:59] LABS: ALBUMIN 2.7 g/dl (3.4-5.0); ANION GAP 11 (8-16); CALCIUM 8.4 mg/dL (8.5-10.1); CO2 24 mmol/L (21-32); CREATININE 0.5 mg/dL (0.55-1.02); GLUCOSE,RANDOM 81 mg/dL (74-106); SGPT/ALT 78 U/L (12-78)
[2016-10-13 09:00] LABS: ALK PHOS 158 U/L (45-117); BILIRUBIN,TOTAL 1.4 mg/dL (0.2-1.0); SGOT/AST 47 U/L (15-37); TOT PROT 5.4 g/dl (6.4-8.2)
[2016-10-13] MEDS ORDERED: SODIUM PHOSPHATE/NA BIPHOS 133 ML ENEMA PR ONE (11:39)
[2016-10-13] MEDS ORDERED: POTASSIUM CHLORIDE TABS 20 MEQ TABLET.ER (FP) PO ONE (12:00)
[2016-10-13] MEDS ORDERED: POLYETHYLENE GLYCOL 3350 119 GM BTL PO ONE (12:09)
--- NOTE | 2016-10-13 12:09 | PN ---
Progress Note (short form) - Note Progress Note: Attending Surgeon POD #2 Pasing gas; tolerating diet; some nausea; no BM VSS AF abdomen-soft/flat/non tender/RIKKI serosanguinous/port sites c/d/i labs noted IMP: s/p lap wm PLAN: Miralax as requested by patient; continue present tx.; trend bili/LFT's ; ? retained CBD stone ? Finn Christianson MD FACS
--- NOTE | 2016-10-13 12:29 | PN ---
Teaching Attending Note Name of Resident: Daniela Martinez ATTENDING PHYSICIAN STATEMENT I saw and evaluated the patient. I reviewed the resident's note and discussed the case with the resident. I agree with the resident's findings and plan as documented. SUBJECTIVE:c/o constipation. contributing to the fact of her IBS. states she smokes to help with her IBS symptoms and have not had a cigarette. denies Cp, SOB, fever,chilsl, N/V/D OBJECTIVE: Last Vital Signs Temp Pulse Resp BP Pulse Ox 99.0 F 89 18 118/65 93 L 10/13/16 06:00 10/13/16 06:00 10/13/16 06:00 10/13/16 06:00 10/12/16 21:00 general NAD Abdomen soft NT/ND +RUQ drain in place. surgical incision intact ASSESSMENT AND PLAN: 70yo F wtih PMH IBS, GERD, dyslipidemia presented to the ER with RUQ x1day and found to have acute cholecystitis 1. Acute Cholecystitis-s/p laprascopic cholecystectomy with RIKKI drain placement . tolerating regular diet. LFT trending down. will need to monitor. if does not continue to improve will need to be concerned for gallstone in CBD. RIKKI drain management per surgery. pain and nausea control 2. constipation- due to IBS. no relief with enema. start miralax. colace, senna 3. Continuous nicotine dependence- refusing nicotine patch states it make her anxious. will try lozenges. 4. Hypomagnesemia- resolved 5. DVT ppx- hep sq
--- NOTE | 2016-10-13 12:33 | PN ---
Physical Exam: SUBJECTIVE: Patient seen and examined at bedside. Pt states that she was feeling better after surgery and was OOB. However, today after eating, she felt very uncomfortable and "backed up." Denies chest or extremity pain, or SOB. OBJECTIVE: Vital Signs Period Temp Pulse Resp BP Sys/Staples Pulse Ox Last 24 Hr 98.5 F-99.3 F 72-96 18-18 104-118/65-66 93 GENERAL: The patient is awake, alert, and fully oriented, in mild distress HEAD: Normal with no signs of trauma. EYES: PERRL, extraocular movements intact, sclera anicteric, conjunctiva clear. No ptosis. ENT: oropharynx clear without exudates, moist mucous membranes. NECK: Trachea midline, supple. LUNGS: Breath sounds equal, clear to auscultation bilaterally, no wheezes, no crackles, no accessory muscle use. HEART: Regular rate and rhythm, S1, S2 without murmur, rub or gallop. ABDOMEN: Soft, mildly tender, nondistended, normoactive bowel sounds, no guarding, no rebound, surgical incisions healing EXTREMITIES: 2+ posterior tibial pulses, warm, well-perfused, no edema. NEUROLOGICAL: Cranial nerves II through XII grossly intact. Laboratory Results - last 24 hr 10/13/16 10/13/16 06:20 06:20 WBC 12.8 H RBC 3.49 L Hgb 10.6 L Hct 31.6 L MCV 90.5 MCH 30.3 MCHC 33.5 RDW 14.1 Plt Count 181 MPV 8.6 Neutrophils % 84.2 H Lymphocytes % 11.7 Monocytes % 3.6 L Eosinophils % 0.2 D Basophils % 0.3 Sodium 141 Potassium 3.4 L Chloride 106 Carbon Dioxide 24 Anion Gap 11 BUN 11 D Creatinine 0.5 L D Creat Clearance w eGFR > 60 Random Glucose 81 D Calcium 8.4 L Magnesium 2.0 D Total Bilirubin 1.4 H AST 47 H D ALT 78 Alkaline Phosphatase 158 H D Total Protein 5.4 L Albumin 2.7 L Active Medications Generic Name Dose Route Start Last Admin Trade Name Freq PRN Reason Stop Dose Admin Acetaminophen 650 mg 10/11/16 17:18 10/12/16 13:50 Tylenol - PO 650 mg Q6H PRN Administration FEVER OR PAIN Heparin Sodium (Porcine) 5,000 unit 10/11/16 22:00 10/13/16 06:38 Heparin - SQ 5,000 unit TID NEHA Administration Morphine Sulfate 2 mg 10/11/16 17:55 Morphine Injection - IVPUSH Q4H PRN PAIN Ondansetron HCl 4 mg 10/11/16 17:55 Zofran Injection IVPUSH Q6H PRN NAUSEA AND/OR VOMITING Oxycodone HCl 5 mg 10/11/16 17:17 10/12/16 06:24 Roxicodone - PO 5 mg Q6H PRN Administration PAIN LEVEL 1-5 Oxycodone HCl 10 mg 10/11/16 17:17 10/12/16 22:13 Roxicodone - PO 10 mg Q6H PRN Administration PAIN LEVEL 6-10 ASSESSMENT/PLAN: 70 y/o F w/ PMH IBS, gallstones, past episodes of biliary colic, who presents to ED with RUQ pain radiating to the back. Pt is admitted for biliary colic, cholelithiasis. She is s/p lap wm. # Biliary colic, cholelithiasis -S/p lap wm -passing flatus, OOB -surgical incisions healing -Pt unable to go today as per Dr. Christianson # IBS -Currently holding Bentyl (anti-spasmodic) as per pt increases her constipation # Constipation -pt feeling uncomfortable, last BM 2 days ago -Fleet enema ordered -Will f/u #Hypokalemia -K+ 3.4 -KCl 40 mEq given -Will monitor levels #Elevated Liver enzymes -pt was unable to go home for this reason, was concern for possible retained stone -AST, ALT trending down to 47, 78 respectively # HLD -Pt stopped taking Crestor, since it irritated her stomach -Has not taken it recently # Pre-diabetic (as per pt) -BGM q6 -Hold ISS # DVT/ GI prophylaxis -SCD's -Heparin 5000 SQ q8 -Protonix 40mg F/E/N IV NS 83 mls/hr Monitor electrolytes Regular diet Visit type - Emergency Visit Emergency Visit: No - New Patient This patient is new to me today: No - Critical Care Critical Care patient: No
[2016-10-13] MEDS ORDERED: PANTOPRAZOLE SODIUM 40 MG in SODIUM CHLORIDE 100 ML IVPB ONE (18:18)
[2016-10-13] MEDS ORDERED: PANTOPRAZOLE SODIUM 40 MG VIAL ONE (18:44)
[2016-10-13] MEDS ORDERED: SODIUM CHLORIDE 100 ML IVPB ONE (18:44)
[2016-10-14] MEDS: HEPARIN NA (PORCINE) 5,000 UNITS/ML 1ML VIAL SQ SCH ×3 (06:42→21:39)
[2016-10-14 08:02] LABS: BASOPHIL 0.6 % (0-2.0); EOSINOPHIL 0.2 % (0-4.5); MCH 30.2 pg (25.7-33.7); MCHC 33.3 g/dl (32.0-36.0); MEAN CELL VOLUME 90.6 fl (80-96); MEAN PLT VOLUME 8.7 fl (7.5-11.1); NEUTROPHILS 76.5 % (42.8-82.8); PLATELET COUNT 205 K/MM3 (134-434); RDW 14.1 % (11.6-15.6); WHITE BLOOD COUNT 10.6 K/mm3 (4.0-10.0)
[2016-10-14 08:28] LABS: ALBUMIN 2.6 g/dl (3.4-5.0); ANION GAP 10 (8-16); CALCIUM 8.8 mg/dL (8.5-10.1); CO2 26 mmol/L (21-32); GLUCOSE,RANDOM 105 mg/dL (74-106)
[2016-10-14 08:32] LABS: ALK PHOS 571 U/L (45-117); BILIRUBIN,TOTAL 3.9 mg/dL (0.2-1.0); CREATININE 0.6 mg/dL (0.55-1.02); SGOT/AST 336 U/L (15-37); SGPT/ALT 362 U/L (12-78); TOT PROT 5.4 g/dl (6.4-8.2)
--- NOTE | 2016-10-14 09:20 | PN ---
Progress Note (short form) - Note Progress Note: Attending Surgeon POD #3 No c/o; feels better AF VSS abdomen-soft/flat/nt/RIKKI serosanguinous LFT's elevated WBC-WNL IMP: concern for retained CBD stone. PLAN: MRCP and/or ERCP; will ask Dr. Mena to see the pt; d/w the patient and DR Dhaliwal. Finn Christianson MD FACS
--- NOTE | 2016-10-14 09:55 | EKG ---
Test Reason : Blood Pressure : / mmHG Vent. Rate : 055 BPM Atrial Rate : 055 BPM P-R Int : 176 ms QRS Dur : 098 ms QT Int : 478 ms P-R-T Axes : 031 017 041 degrees QTc Int : 457 ms SINUS BRADYCARDIA OTHERWISE NORMAL ECG NO PREVIOUS ECGS AVAILABLE Confirmed by URIAH HUNT MD ([id number]) on 10/14/2016 9:55:28 AM Referred By: Confirmed By:URIAH HUNT MD
--- NOTE | 2016-10-14 14:36 | PN ---
Teaching Attending Note Name of Resident: Daniela Martinez ATTENDING PHYSICIAN STATEMENT I saw and evaluated the patient. I reviewed the resident's note and discussed the case with the resident. I agree with the resident's findings and plan as documented. SUBJECTIVE:states abdominal discomfort improved. passed copious amounts of flatus. no BM. denies CP, SOB, fever, chills, N/V/D OBJECTIVE: Last Vital Signs Temp Pulse Resp BP Pulse Ox 98.1 F 84 18 111/71 93 L 10/14/16 08:47 10/14/16 08:47 10/14/16 08:47 10/14/16 08:47 10/14/16 09:00 Intake & Output 10/11/16 10/12/16 10/13/16 10/14/16 23:59 23:59 23:59 23:59 Intake Total 200 1600 750 Output Total 35 40 200 220 Balance 165 1560 550 -220 Weight 161 lb general NAD Abdomen soft NT/ND +RUQ drain in place with seroussangenous drainage. surgical incision intact ASSESSMENT AND PLAN: 70yo F wtih PMH IBS, GERD, dyslipidemia presented to the ER with RUQ x1day and found to have acute cholecystitis 1. Acute Cholecystitis-s/p laprascopic cholecystectomy with RIKKI drain placement . asymptomatic. transaminases trending up. concern for retained stone or bile leak as increased output in RIKKI drain since placed. MRCP ordered. GI consulted. d/w surgery possibility of additional surgery pending MRCP results. d /w pt in detail answered all questions. verbalized understanding and agreement. pain and nausea control 2. constipation- due to IBS. passed copious amounts of flatus. states she feels improved. wants watchful waiting for BM at this time 3. Continuous nicotine dependence- refusing nicotine patch states it make her anxious.lozengers not available here 4. Hypomagnesemia- resolved 5. DVT ppx- hep sq
--- NOTE | 2016-10-14 16:12 | PN ---
Physical Exam: SUBJECTIVE: Patient seen and examined at bedside. Pt states that she is passing gas today, but has not had a BM yet. Otherwise, pt has no complaints. Today is the first day she has been feeling better. Denies chest pain, SOB, extremity pain. OBJECTIVE: Vital Signs Period Temp Pulse Resp BP Sys/Staples Pulse Ox Last 24 Hr 98.1 F-98.5 F 80-98 16-18 111-154/57-75 93-95 GENERAL: The patient is awake, alert, and fully oriented, in no acute distress. HEAD: Normal with no signs of trauma. EYES: PERRL, extraocular movements intact, sclera anicteric, conjunctiva clear. No ptosis. NECK: Trachea midline, full range of motion, supple. LUNGS: Breath sounds equal, clear to auscultation bilaterally, no wheezes, no crackles, no accessory muscle use. HEART: Regular rate and rhythm, S1, S2 without murmur, rub or gallop. ABDOMEN: mildly tender RUQ, RLQ, no voluntary guarding, no distension, no rebound tenderness EXTREMITIES: 2+ posterior tibial pulses, warm, well-perfused, no edema. NEUROLOGICAL: Cranial nerves II through XII grossly intact. Laboratory Results - last 24 hr 10/14/16 10/14/16 07:00 07:36 WBC 10.6 H RBC 3.78 Hgb 11.4 Hct 34.3 MCV 90.6 MCH 30.2 MCHC 33.3 RDW 14.1 Plt Count 205 MPV 8.7 Neutrophils % 76.5 Lymphocytes % 17.4 D Monocytes % 5.3 Eosinophils % 0.2 Basophils % 0.6 Sodium 142 Potassium 3.7 Chloride 106 Carbon Dioxide 26 Anion Gap 10 BUN 12 Creatinine 0.6 Creat Clearance w eGFR > 60 Random Glucose 105 D Calcium 8.8 Total Bilirubin 3.9 H D AST 336 H D ALT 362 H D Alkaline Phosphatase 571 H D Total Protein 5.4 L Albumin 2.6 L Active Medications Generic Name Dose Route Start Last Admin Trade Name Freq PRN Reason Stop Dose Admin Acetaminophen 650 mg 10/11/16 17:18 10/12/16 13:50 Tylenol - PO 650 mg Q6H PRN Administration FEVER OR PAIN Heparin Sodium (Porcine) 5,000 unit 10/11/16 22:00 10/14/16 14:50 Heparin - SQ 5,000 unit TID NEHA Administration Ondansetron HCl 4 mg 10/11/16 17:55 10/13/16 15:59 Zofran Injection IVPUSH 4 mg Q6H PRN Administration NAUSEA AND/OR VOMITING Oxycodone HCl 5 mg 10/11/16 17:17 10/12/16 06:24 Roxicodone - PO 5 mg Q6H PRN Administration PAIN LEVEL 1-5 Oxycodone HCl 10 mg 10/11/16 17:17 10/12/16 22:13 Roxicodone - PO 10 mg Q6H PRN Administration PAIN LEVEL 6-10 ASSESSMENT/PLAN: 70 y/o F w/ PMH IBS, gallstones, past episodes of biliary colic, who presents to ED with RUQ pain radiating to the back. Pt is admitted for biliary colic, cholelithiasis. She is s/p lap wm. # Biliary colic, cholelithiasis -S/p lap wm -passing flatus, OOB -surgical incisions healing -Pain coverage: Tylenol 650 PO q6 PRN, roxicodone 5mg q6, 10mg q6 #Elevated Liver enzymes -AST 336, ALT 362, ALP 571, bili 3.9 -Possibility of retained stone, or bile leak since RIKKI draining increased amount of serosanguineous fluid -F/u MRCP -Possible ERCP if stone located, possible open if bile leak -F/u GI consult- Rajesh # Constipation -pt passing flatus, has not had BM yet -has been taking Senna, colace, miralax (and fleet enema yesterday) -Will add lactulose if needed # IBS -Currently holding Bentyl (anti-spasmodic) as per pt increases her constipation # HLD -Pt stopped taking Crestor, since it irritated her stomach -Has not taken it recently # Pre-diabetic (as per pt) -BGM q6 -Hold ISS #Hypokalemia- resolved # DVT/ GI prophylaxis -SCD's -Heparin 5000 SQ q8 -Protonix 40mg F/E/N IV NS 83 mls/hr Monitor electrolytes Regular diet Visit type - Emergency Visit Emergency Visit: No - New Patient This patient is new to me today: No - Critical Care Critical Care patient: No
[2016-10-14] MEDS ORDERED: LORazepam 2 MG/ML SDV VIAL ONE (16:47)
--- NOTE | 2016-10-14 17:02 | PN ---
Progress Note (short form) - Note Progress Note: GI CONSULTATION: SEE COMPLETE DICTATION OF CONSULT: 70F WTIH IBS ADMIT WITH RUQ/EPIGASTRIC PAIN FOUND TO HAVE CHOLELITHIASIS/ CHOLECYSTITIS UNDERWENT LAP JANNA WITH ADILENE AND DRAIN PLACEMENT ALTHOUGH PT FEELS MUCH IMPROVED, SHE HAS HAD INCREASING RIKKI DRAIN OUT PUT AND RISING LFT'S FINDINGS CONCERNING FOR POSSIBLE BILE LEAK VS CBD STONE AGREE WTIH PAIN MEDS/IVF/ABX/ HIDA SCAN TO ASSESS FOR BILE LEAK AND BILOMA AND MRCP TO ASSESS CBD------HOWEVER, STRONGLY SUSPECT PT WILL WARRANT A DX/ RX ERCP AT THE BEDSIDE I HAVE DRAWN PICTURES TO EXPLAIN ERCP PROCEDURE THAT MY BE NECESSARY ASND WILL BE PERFORMED BY DR SAMUELS OUR BILIARY ENDIOSCOPIST. HAVE D /W PROS/CONS AND RISKS OF PROCEDURE INCLUDING PEROFATION/INFECTION./BLEEDING AND PANCREATRITIS RISK OF 10% IN ALL COMERS. F/U HIDA/MRCP AND LABS THANKS, MD EVERARDO
[2016-10-14] MEDS: LACTATED RINGERS SOLUTION 1,000 ML IV SCH (23:27)
--- NOTE | 2016-10-15 07:25 | CONS ---
DATE OF CONSULTATION: 10/14/2016 REASON FOR CONSULTATION: I was asked by Dr. Up and Dr. Christianson, the surgeon, to evaluate the patient for possible choledocholithiasis, status post laparoscopic cholecystectomy. HISTORY OF PRESENT ILLNESS: The patient is a 70-year-old woman with a past medical history of noted irritable bowel. She had been followed by Dr. Ravin Lang at [facility] and then Dr. Millie Juan at [facility]. She has had endoscopies and colonoscopies over the years. She has had twisted bowels. She has had esophagitis and reflux disease. She has had frequent endoscopies. She states that recently she had been away on vacation. She had not been eating prudently and she was noting abdominal pain. She recently had a severe attack where she was lying down. She has had epigastric pain going to the back. It is worse when she lies down. She had nausea, dry heaving. No fevers, chills, or sweats. She has not had vomiting or diarrhea. She has not had rectal bleeding or tarry stools. In terms of other medical history, she has had continued tobacco abuse over the years. She does not drink. She does not use any recreational substances. She has a history of fatty liver as well and she has had a history of gastric fundic polyps, esophageal ulceration, diverticulosis, and irritable bowel disease. When she came in, she was afebrile. She was noted to have a tender nondistended abdomen. Bowel sounds are present. She underwent a CAT scan of the abdomen and pelvis that revealed an abnormal gallbladder consistent with cholecystitis. She was noted to have no ductal dilatation at that time. She underwent a gallbladder sonogram that also noted a distended gallbladder with multiple gallstones. There was no biliary ductal dilatation at the time. When she came in, her liver enzymes were essentially unremarkable. She then underwent cholecystectomy laparoscopically on October [address] Christianson who noted cholelithiasis and acute cholecystitis. The patient warranted a J-P drain and she has been closely followed over the next couple days. We are being called because she has had continued drainage from the drain and elevation of liver enzymes raising question of either a bile leak or choledocholithiasis. It was also noted that she had lysis of adhesions during the examination according to the chart. Speaking to the patient now, she feels absolutely fine. She says the drain is looking much better. It is draining less. She has no discomfort. She has no nausea, vomiting, or abdominal pain. No fevers, chills, or sweats. However. of note her liver enzymes are elevated. Her bilirubin has gone from 0.5 to 1.4 to 3.9, her AST from 26 to 47 to 336, the ALT from 43 to 362, the alkaline phosphatase to 571, the total protein to 5.4, the albumin down to 2.6. The lipase and amylase were normal on admission. Her coags are perfectly normal and her white count went from 12 to 14 to 12 today to 10. Hemoglobin is 11 and hematocrit is 34.3, stable. Now, it looks like she has not had repeat imaging at this time. ALLERGIES: She is noted to be allergic to PAXIL, PRILOSEC, BUPROPION. HOME MEDICATIONS: Only include Bentyl and acyclovir. SOCIAL HISTORY: She tells me that she is retired. She is . FAMILY HISTORY: Noncontributory. PHYSICAL EXAMINATION:Vital Signs: She is afebrile. Her vital signs are stable. Skin: Cool. General: She is in absolutely no acute distress. HEENT: Sclerae are anicteric. Neck: Supple. Abdomen: Very soft. There is no tenderness to palpation. There are no masses, rebound, or guarding. The drain site is clean. The drain has about 20 mL of minimally serosanguineous fluid. CURRENT MEDICATIONS: Include Zofran, Tylenol, Oxycodone. LABORATORY DATA: Is as noted. IMPRESSION: So it is my impression that the patient is a 70-year-old woman with known history of gastrointestinal disease over the years, mainly functional bowel disorders. She has had diverticulosis, fundic glandular polyps, irritable bowel syndrome, and reflux disease, came in with a few attacks of biliary colic, and has had worsening severe pain, led to admission due to severe pain, vomiting, and nausea. She was noted to have evidence of cholelithiasis and cholecystitis. She underwent a laparoscopic cholecystectomy where she was noted to have extensive adhesions requiring a drain placement. The drain has been draining less. However, her liver enzymes have been markedly rising. At this time, there is concern of either a bile leak or a stone in the common bile duct. RECOMMENDATIONS: So I agree the patient should certainly undergo a HIDA scan to rule out a bile leak and an MRCP if possible. Then, pending the findings the patient will likely possibly warrant an ERCP for therapeutic purposes. I have discussed the ERCP procedure in detail. I have drawn pictures. I have allowed her to ask questions and answered them to the best of my ability. I have discussed the risks of infection, bleeding, and perforation and the 5% to 10% risk of pancreatitis that is seen in all comers. The patient agrees to the proposed plan and based on further imaging recommendations will follow. At the present time, she does not appear to be unstable. She does not appear to have cholangitis or be infected. Should this change, she may warrant an ERCP sooner. Will follow up the labs. Continue pain management, IV fluid, and watching the drain output. We will continue to be available to aid in management of this patient. Thank you kindly. MARLA MCGEE M.D. MARIA ELENA/[id number]
--- NOTE | 2016-10-15 07:40 | OP ---
DATE OF OPERATION: 10/11/2016 PREOPERATIVE DIAGNOSES: Acute cholecystitis, cholelithiasis. POSTOPERATIVE DIAGNOSES: Acute cholecystitis, cholelithiasis. PROCEDURE: Laparoscopic cholecystectomy. SURGEON: Finn Christianson MD TRANSFER CAR OPERATOR: Laina Leblanc PA-C ANESTHESIA: General. OPERATIVE FINDINGS: There were extensive adhesions from previous surgery and there was cholecystitis and cholelithiasis. The rest of the findings were unremarkable. PROCEDURE: The patient was placed on the operating table in the supine position. After the induction of general anesthesia, patient's abdomen was prepped with ChloraPrep and draped in sterile fashion. A timeout was taken and pneumoperitoneum established above the umbilicus using a Veress needle. Once 15 mmHg of intraabdominal pressure were achieved, a 5-mm port was placed and laparoscopy carried out and the previously noted findings were observed. A subxiphoid 12-mm port was placed and then all adhesions in the right upper quadrant that were in the operative field were taken down using a combination of sharp dissection and cautery. At this point, 2 right lateral 5-mm ports were placed and then the gallbladder was decompressed using a needle suction catheter. The gallbladder was then placed on cephalad and lateral traction and dissection begun in the triangle of Calot where the peritoneum over the gallbladder was opened using electrocautery medially and laterally. Using blunt dissection, the cystic duct was identified and dissected proximally and distally for length and the artery similarly identified and dissected for length. The cystic duct was divided with large hemoclips, 2 proximally and 2 distally, and then divided using the Endoshears. The artery was similarly clipped and divided. The gallbladder was then removed in a retrograde fashion from the liver bed using electrocautery. It was removed from the edge of the liver, placed in an EndoCatch, and brought out through the subxiphoid port. Pneumoperitoneum was reestablished and hemostasis checked for and noted to be good. Some small bleeding points in the liver bed were cauterized to achieve hemostasis. Again, copious irrigation was carried out until the return was clear and then a 10-mm Angelo-Suarez drain was placed in the right hepatorenal fossa and brought out through one of the 5-mm ports and secured to the skin with 2-0 silk suture. Hemostasis again was verified and then all ports removed under laparoscopic vision without evidence of bleeding from the port sites or bleeding from any of the areas of the abdominal wall where the adhesions were taken down and the colon was verified as unremarkable as well. Pneumoperitoneum was released and then all port sites were infiltrated with 0.5% Marcaine and the skin edges closed with 4-0 Vicryl in a subcuticular continuous fashion. Steri-Strips and Band-Aid dressings were placed and the drain connected to bulb self suction and the patient aroused from general anesthesia and transferred to the postanesthesia care unit in stable condition awake and alert. ESTIMATED BLOOD LOSS: 100 mL. REPLACEMENT: Crystalloid. DRAINS: One 10-mm Angelo-Suarez. SPECIMEN: Gallbladder and contents to Pathology. I, Finn Christianson, was physically present in the operating room from the time the patient was placed on the operating table until she was transferred to the postanesthesia care unit in my accompaniment. MD YULIA Ruvalcaba/[id number]
[2016-10-15] MEDS: LACTATED RINGERS SOLUTION 1,000 ML IV SCH ×2 (07:53→17:15)
[2016-10-15 08:12] LABS: BASOPHIL 0.7 % (0-2.0); EOSINOPHIL 3.1 % (0-4.5); MCH 30.3 pg (25.7-33.7); MCHC 33.6 g/dl (32.0-36.0); MEAN PLT VOLUME 8.5 fl (7.5-11.1); NEUTROPHILS 67.1 % (42.8-82.8); PLATELET COUNT 209 K/MM3 (134-434); RDW 14.4 % (11.6-15.6); WHITE BLOOD COUNT 8.2 K/mm3 (4.0-10.0)
[2016-10-15 08:51] LABS: ANION GAP 7 (8-16); CALCIUM 8.5 mg/dL (8.5-10.1); CO2 26 mmol/L (21-32); CREATININE 0.6 mg/dL (0.55-1.02); GLUCOSE,RANDOM 97 mg/dL (74-106)
--- NOTE | 2016-10-15 09:45 | PN ---
Progress Note (short form) - Note Progress Note: Attending Surgeon POD #4 No c/o tolerating diet VSS AF abdomen- benign/port sites c/d/i; RIKKI serosanguinous and w/ minimal output today LFT's/bili pending IMP: doing well s/p lap wm; r/o retained CBD stone PLAN: MRCP done; further plan pendiing results. Finn Christianson MD FACS
[2016-10-15] MEDS ORDERED: INDOMETHACIN 50 MG RECTAL SUPPOSITORY PR ONE ×3 (10:00→15:16)
[2016-10-15] MEDS ORDERED: PT OWN MED DRAWER 7, Y5N ONE (10:20)
[2016-10-15 10:46] LABS: ALBUMIN 2.4 g/dl (3.4-5.0); BILIRUBIN,DIRECT 3.2 mg/dL (0.0-0.2); BILIRUBIN,TOTAL 4.1 mg/dL (0.2-1.0); TOT PROT 5.2 g/dl (6.4-8.2)
[2016-10-15] MEDS ORDERED: IOHEXOL 300 MG/ML INFUS..BTL IJ ONE (15:30)
--- NOTE | 2016-10-15 16:12 | PATH ---
Surgical Pathology Report Patient Name: MERRITT HERNÁNDEZ Med. Rec. #: [id number] /Age/Gender: 1945 (Age: 70) / F Account: [id number] Location: [facility] MED/SURG Taken: 10/14/2016 Received: 10/14/2016 Reported: 10/15/2016 Physicians: Finn Christianson MD Specimen(s) Received GALLBLADDER Clinical History Cholelithiasis Final Diagnosis GALLBLADDER, CHOLECYSTECTOMY: ACUTE AND CHRONIC CHOLECYSTITIS, CHOLELITHIASIS AND HYPERPLASTIC POLYPS. Electronically Signed Ibrahima Galo M.D. Gross Description Received in formalin, labeled "gallbladder" is a 10.7 x 3.0 x 3.0 cm gallbladder with a 0.2 cm in length portion of cystic duct attached. The outer surface is vega-zhu with a focal defect and varies from smooth to shaggy. The lumen contains vega, tenacious bile as well as numerous irregular choleliths ranging from 0.1-3.5 cm in greatest dimension. The mucosa is vega-green with focal polypoid lesions. The wall of the gallbladder ranges from 0.1-0.4 cm in thickness. Mercury [employer]ifier sections are submitted in 2 cassettes as follows: 1-cystic duct margin and personal service representative mucosa; 2-possible mucosal polyps. 10/14/201610/14/2016
--- NOTE | 2016-10-15 17:10 | PN ---
Progress Note (short form) - Note Progress Note: GI Procedure NOte: Please see scanned ERCP report. Two small distal CBD stones were found. The papilla was very small precluding a large sphincterotomy so the stones had to be crushed using a wire basket. Only one could be crushed and removed so a 7Fr x 5cm double pigtail stent was inserted. I explained to the and Elaine that she will need a repeat ERCP after 3 months of Actigall therapy. Will need to observe for pancreatitis. Case discussed with Dr Christianson.
[2016-10-15] MEDS ORDERED: LACTATED RINGERS SOLUTION 1,000 ML IV SCH (17:15)
--- NOTE | 2016-10-15 17:28 | PN ---
Physical Exam: SUBJECTIVE: Patient seen and examined at bedside. Pt states that she is passing gas and has mild abdominal discomfort. Otherwise, doing well. Denies N/V, chest pain, SOB or lower extremity pain. OBJECTIVE: Vital Signs Period Temp Pulse Resp BP Sys/Staples Pulse Ox Last 24 Hr 98.7 F-99.5 F 81-96 18-20 104-134/61-69 93-94 GENERAL: The patient is awake, alert, and fully oriented, in no acute distress. HEAD: Normal with no signs of trauma. EYES: PERRL, extraocular movements intact, sclera anicteric, conjunctiva clear. NECK: Trachea midline, supple. LUNGS: Breath sounds equal, clear to auscultation bilaterally, no wheezes, no crackles, no accessory muscle use. HEART: Regular rate and rhythm, S1, S2 without murmur, rub or gallop. ABDOMEN: mildly distended, surgical incisions healing, mildly tender to palpation EXTREMITIES: 2+ posterior tibial pulses, warm, well-perfused, no edema. NEUROLOGICAL: Cranial nerves II through XII grossly intact. Laboratory Results - last 24 hr 10/15/16 10/15/16 10/15/16 07:00 07:00 07:30 WBC 8.2 RBC 3.52 L Hgb 10.6 L Hct 31.7 L MCV 90.0 MCH 30.3 MCHC 33.6 RDW 14.4 Plt Count 209 MPV 8.5 Neutrophils % 67.1 Lymphocytes % 22.0 D Monocytes % 7.1 Eosinophils % 3.1 D Basophils % 0.7 Sodium 142 Potassium 3.7 Chloride 109 H Carbon Dioxide 26 Anion Gap 7 L BUN 9 D Creatinine 0.6 Random Glucose 97 Calcium 8.5 Total Bilirubin 4.1 H Direct Bilirubin 3.2 H AST 346 H ALT 470 H D Alkaline Phosphatase 642 H Total Protein 5.2 L Albumin 2.4 L Active Medications Generic Name Dose Route Start Last Admin Trade Name Freq PRN Reason Stop Dose Admin Acetaminophen 650 mg 10/11/16 17:18 10/12/16 13:50 Tylenol - PO 650 mg Q6H PRN Administration FEVER OR PAIN Lactated Ringer's 1,000 mls @ 150 mls/hr 10/15/16 23:15 Lactated Ringers Solution IV 10/16/16 07:00 ASDIR NEHA Lactated Ringer's 1,000 mls @ 125 mls/hr 10/16/16 07:00 Lactated Ringers Solution IV ASDIR PENDING SALE TO [facility] Ondansetron HCl 4 mg 10/11/16 17:55 10/13/16 15:59 Zofran Injection IVPUSH 4 mg Q6H PRN Administration NAUSEA AND/OR VOMITING Oxycodone HCl 5 mg 10/11/16 17:17 10/12/16 06:24 Roxicodone - PO 5 mg Q6H PRN Administration PAIN LEVEL 1-5 Oxycodone HCl 10 mg 10/11/16 17:17 10/12/16 22:13 Roxicodone - PO 10 mg Q6H PRN Administration PAIN LEVEL 6-10 Polyethylene Glycol 17 gm 10/15/16 22:00 Miralax (For Daily Use) - PO BID PENDING SALE TO [facility] Ursodiol 300 mg 10/15/16 22:00 Actigal - PO BID PENDING SALE TO [facility] ASSESSMENT/PLAN: 70 y/o F w/ PMH IBS, gallstones, past episodes of biliary colic, who presents to ED with RUQ pain radiating to the back. Pt is admitted for biliary colic, cholelithiasis. She is s/p lap wm. # Biliary colic, cholelithiasis -S/p lap wm -passing flatus, OOB -surgical incisions healing -Pain coverage: Tylenol 650 PO q6 PRN, roxicodone 5mg q6, 10mg q6 #Elevated Liver enzymes -HIDA: high grade stenosis, occlusion of distal CBD -ERCP: 2 small distal CBD stones found, stent inserted, will need repeat ERCP after 3 months of ursodeoxycholic acid therapy (300mg PO BID) -Will monitor for pancreatitis b/c only one stone could be removed # IBS -Currently holding Bentyl (anti-spasmodic) as per pt increases her constipation # HLD -Pt stopped taking Crestor, since it irritated her stomach -Has not taken it recently # Pre-diabetic (as per pt) -BGM q6 -Hold ISS #Hypokalemia- resolved # DVT/ GI prophylaxis -SCD's -Heparin 5000 SQ q8 -Protonix 40mg F/E/N IV LR 125 mls/hr Monitor electrolytes Clear liquid diet Visit type - Emergency Visit Emergency Visit: No - New Patient This patient is new to me today: No - Critical Care Critical Care patient: No
--- NOTE | 2016-10-15 18:20 | PN ---
Teaching Attending Note Name of Resident: Daniela Martinez ATTENDING PHYSICIAN STATEMENT I saw and evaluated the patient. I reviewed the resident's note and discussed the case with the resident. I agree with the resident's findings and plan as documented. SUBJECTIVE: OBJECTIVE: Vital Signs Period Temp Pulse Resp BP Sys/Staples Pulse Ox Last 24 Hr 98.7 F-99.4 F 81-86 18-20 104-118/61-69 93-94 ASSESSMENT AND PLAN: 70yo F wtih PMH IBS, GERD, dyslipidemia presented to the ER with RUQ x1day and found to have acute cholecystitis 1. Acute Cholecystitis-s/p laprascopic cholecystectomy with RIKKI drain placement . asymptomatic. transaminases trending up. concern for retained stone or bile leak as increased output in RIKKI drain since placed. MRCP ordered. GI consulted. d/w surgery possibility of additional surgery pending MRCP results. d /w pt in detail answered all questions. verbalized understanding and agreement. pain and nausea control 2. constipation- due to IBS. passed copious amounts of flatus. states she feels improved. wants watchful waiting for BM at this time 3. Continuous nicotine dependence- refusing nicotine patch states it make her anxious.lozengers not available here 4. Hypomagnesemia- resolved 5. DVT ppx- hep sq
[2016-10-15] MEDS: URSODIOL 300 MG CAPSULE PO SCH (21:41)
[2016-10-15] MEDS: POLYETHYLENE GLYCOL 3350 119 GM BTL PO SCH (21:41)
[2016-10-16] MEDS: LACTATED RINGERS SOLUTION 1,000 ML IV SCH (00:16)
[2016-10-16] MEDS ORDERED: LACTATED RINGERS SOLUTION 1,000 ML IV SCH (07:00)
[2016-10-16 08:33] LABS: BASOPHIL 0.7 % (0-2.0); EOSINOPHIL 2.5 % (0-4.5); MCH 30.6 pg (25.7-33.7); MCHC 33.9 g/dl (32.0-36.0); MEAN CELL VOLUME 90.2 fl (80-96); MEAN PLT VOLUME 8.3 fl (7.5-11.1); NEUTROPHILS 67.5 % (42.8-82.8); PLATELET COUNT 221 K/MM3 (134-434); RDW 14.7 % (11.6-15.6); WHITE BLOOD COUNT 9.1 K/mm3 (4.0-10.0)
[2016-10-16 08:58] LABS: ALBUMIN 2.5 g/dl (3.4-5.0); AMYLASE 35 U/L (25-115); ANION GAP 8 (8-16); BILIRUBIN,TOTAL 2.2 mg/dL (0.2-1.0); CALCIUM 8.6 mg/dL (8.5-10.1); CO2 27 mmol/L (21-32); CREATININE 0.5 mg/dL (0.55-1.02); GLUCOSE,RANDOM 87 mg/dL (74-106); SGOT/AST 144 U/L (15-37); SGPT/ALT 385 U/L (12-78); TOT PROT 5.4 g/dl (6.4-8.2)
[2016-10-16 09:05] LABS: ALK PHOS 651 U/L (45-117); BILIRUBIN,DIRECT 1.4 mg/dL (0.0-0.2)
[2016-10-16] MEDS ORDERED: PT OWN MED DRAWER 7, Y5N ONE (10:31)
[2016-10-16] MEDS: POLYETHYLENE GLYCOL 3350 119 GM BTL PO SCH (10:36)
[2016-10-16] MEDS: URSODIOL 300 MG CAPSULE PO SCH (10:36)
--- NOTE | 2016-10-16 11:36 | PN ---
GI Progress Note Subjective: No acute events States feeling a bit winded after speaking, otherwise denies chest pain, shortness of breath while walking around the unit S/P ERCP with CBD stone extraction, (? small retained CBD stone fragments)with stent placement. Had BM yesterday - Objective Vital Signs: Vital Signs Temperature 99 F 10/16/16 10:00 Pulse Rate 83 10/16/16 10:00 Respiratory Rate 20 10/16/16 10:00 Blood Pressure 135/89 10/16/16 10:00 O2 Sat by Pulse Oximetry (%) 96 10/15/16 21:00 Constitutional: Calm Eyes: No: Sclera Icterus Cardiovascular: Yes: Regular Rate and Rhythm Respiratory: Yes: CTA Bilaterally Gastrointestinal Inspection: Yes: Scars (dressed trochar incisions, small blister right mid abdomen). No: Distention ...Auscultate: Yes: Normoactive Bowel Sounds ...Palpate: Yes: Tenderness (mild TTP epigastrium and at trochar sites) ...Percussion: No: Tympanitic Edema: No Neurological: Yes: Alert, Oriented Labs: CBC, BMP 10/16/16 06:30 10/16/16 06:30 INR, PTT INR 0.98 (0.82-1.09) 10/11/16 11:20 Hepatic Panel Total Bilirubin 2.2 mg/dL (0.2-1.0) H D 10/16/16 06:30 Direct Bilirubin 1.4 mg/dL (0.0-0.2) H D 10/16/16 06:30 AST 144 U/L (15-37) H D 10/16/16 06:30 ALT 385 U/L (12-78) H 10/16/16 06:30 Alkaline Phosphatase 651 U/L (45-117) H 10/16/16 06:30 Albumin 2.5 g/dl (3.4-5.0) L 10/16/16 06:30 Problem List - Problems (1) Choledocholithiasis Assessment/Plan: S/P ERCP as described above On Actigal Low Fat diet Monitor LFT's Repeat ERCP in 2-3 months for reevaluation / stent removal Code(s): K80.50 - CALCULUS OF BILE DUCT W/O CHOLANGITIS OR CHOLECYST W/O OBST (2) Constipation Assessment/Plan: MiraLAX 17g BID as needed, particularly while on opiate analgesia 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
[2016-10-16 16:00] VITALS: BP 130/78; PULSE 80; TEMP 98
--- NOTE | 2016-10-16 17:15 | PN ---
Teaching Attending Note Name of Resident: Daniela Martinez ATTENDING PHYSICIAN STATEMENT I saw and evaluated the patient. I reviewed the resident's note and discussed the case with the resident. I agree with the resident's findings and plan as documented. SUBJECTIVE: OBJECTIVE: Vital Signs Period Temp Pulse Resp BP Sys/Staples Pulse Ox Last 24 Hr 98.0 F-99 F 80-83 16-20 126-138/69-89 96-99 ASSESSMENT AND PLAN:
--- NOTE | 2016-10-16 18:30 | DS ---
Physical Exam: SUBJECTIVE: Patient seen and examined at bedside today. States that her abdominal pain has improved greatly and she is ready to go home. Pt has been OOB and ambulating on own. Denies fever, chills, chest pain or SOB. OBJECTIVE: Vital Signs Period Temp Pulse Resp BP Sys/Staples Pulse Ox Last 24 Hr 98.0 F-99 F 80-83 16-20 126-138/69-89 96-99 PHYSICAL EXAM GENERAL: The patient is awake, alert, and fully oriented, in no acute distress. HEAD: Normal with no signs of trauma. EYES: PERRL, extraocular movements intact, sclera anicteric, conjunctiva clear. NECK: Trachea midline, full range of motion, supple. LUNGS: Breath sounds equal, clear to auscultation bilaterally, no wheezes, no crackles, no accessory muscle use. HEART: Regular rate and rhythm, S1, S2 without murmur, rub or gallop. ABDOMEN: Mildly tender abdomen, normoactive bowel sounds, no guarding, no rebound, no hepatosplenomegaly, no masses. EXTREMITIES: 2+ posterior tibial pulses, warm, well-perfused, no edema. NEUROLOGICAL: Cranial nerves II through XII grossly intact. Normal speech, gait not observed. PSYCH: Normal mood, normal affect. SKIN: Warm, dry, normal turgor, no rashes or lesions noted. LABS 10/11/16 10/11/16 10/11/16 03:45 03:45 06:25 WBC 12.7 H RBC Hgb Hct Plt Count Neutrophils % 85.9 H Monocytes % 2.0 L BUN 22 H Random Glucose 127 H Total Bilirubin AST ALT Alkaline Phosphatase 165 H Urine Ketones 2+ H 10/12/16 10/12/16 10/13/16 06:00 06:00 06:20 WBC 14.5 H 12.8 H RBC 3.49 L Hgb Hct 33.4 31.6 L Plt Count Neutrophils % Monocytes % BUN Random Glucose Total Bilirubin 1.5 H D AST 60 H D ALT 88 H D Alkaline Phosphatase Urine Ketones 10/13/16 10/14/16 10/14/16 06:20 07:00 07:36 WBC 10.6 H RBC Hgb 11.4 Hct 34.3 Plt Count 205 Neutrophils % Monocytes % BUN Random Glucose Total Bilirubin 1.4 H 3.9 H D AST 47 H D 336 H D ALT 78 362 H D Alkaline Phosphatase Urine Ketones 10/15/16 10/15/16 10/16/16 07:00 07:30 06:30 WBC 8.2 RBC Hgb 10.6 L Hct 31.7 L Plt Count 209 Neutrophils % Monocytes % BUN Random Glucose Total Bilirubin 4.1 H 2.2 H D AST 346 H 144 H D ALT 470 H D 385 H Alkaline Phosphatase Urine Ketones 10/16/16 06:30 WBC 9.1 RBC Hgb 11.0 Hct 32.4 Plt Count 221 Neutrophils % Monocytes % BUN Random Glucose Total Bilirubin AST ALT Alkaline Phosphatase Urine Ketones IMAGING -10/11/16: Abdomen/pelvis CT: abnormal region of GB, rule out cholecystitis, recommend sonography scan -10/11/16: GB US: mildly distended GB with multiple calculi, no sonographic evidence of acute cholecystitis. -10/14/16: interval cholecystectomy with postsurgical changes and edema in GB fossa and RUQ with no evidence of choledocholithiasis or pancreaticobiliary dilation, moderate bilateral basilar subsegmental atelectasis -10/15/16: HIDA scan: high grade stenosis or occlusion of distal CBD, no bile leak -10/15/16: ERCP: 2 small distal CBD stones present, 1 stone crushed and removed, pigtail stent inserted, other stone- will disintegrate with ursodiol admin SURGERIES 10/14/16: Laparoscopic cholecystectomy HOSPITAL COURSE: Date of Admission:10/11/16 Date of Discharge: 10/16/16 Admit diagnosis: biliary colic, cholelithiasis Pre-admission course 70 y/o F with PMH IBS, gallstones, past episodes of biliary colic (dx by Dr. Lang, [facility]), who presents to ED with RUQ abdominal pain. As per pt, at 6pm yesterday, she took Bentyl for IBS, and then at 5 am this morning, pt developed sudden, constant RUQ pain radiating to the back. Pain is 10/10, colicky, and is associated with dry heaving and nausea, and is not related to food. Her movement is limited and it is difficult for her to lay on her back comfortably. Pain was not relieved by Tums, Mili [place] or Tylenol and is accompanied by SOB and palpitations. Episode is similar to pain in the past, which would subside within 4-5 hours. However, this episode was more severe, lasting longer, so pt decided to come to the hospital. Pt follows with GI, Dr. Lang from [facility] and has been told that her past episodes were not severe enough to warrant cholecystectomy. ER course was notable for: (1) morphine, dilaudid (2) Abd/pelvis CT: abnormal GB, r/o cholecystitis, recommend U/S (3) RUQ U/S: mildly distended GB with multiple calculi, no sonographic evidence of acute cholecystitis Hospital course Pt underwent lap wm on 10/14/16 to address biliary colic and cholelithiasis. While pt was recovering from surgery, she experienced an increase in her LFTs, 336 and 332 respectively for AST and ALT. This was suspicious for either bile leak or retained stone. HIDA was done which revealed high grade stenosis or occlusion of distal CBD, no bile leak, and ERCP later revealed 2 distal stones. 1 stone was crushed and removed, pigtail stent was inserted, and pt given ursodiol to help dissolution of other stone. After ERCP, LFTs began to trend down. Pt will undergo repeat ERCP as outpt in 3 months to check status. Minutes to complete discharge: 32 Discharge Summary Reason For Visit: CHEOLECYSTECTOMY Condition: Stable - Instructions Diet, Activity, Other Instructions: Dr. Christianson Discharge Instructions Dear MERRITT HERNÁNDEZ, Post Operative Instructions Physical activity Resume your normal everyday activity as tolerated no heavy lifting or exercise until seen by your surgeon. You may walk unlimited amounts of and climb stairs. You may resume driving the car when you feel safe and comfortable behind the wheel. Wound care If you have a bandage, leave it on, and keep dry for 48 - 72 hours. After that time discard the outer bandage. If there are tapes on the skin under the outer bandage, leave them in place. They will peel off in the next 7 to 10 days. Do Not peel them off. You may shower 2 days after surgery. If there are tapes present on the skin, they can get wet. Diet There are no dietary restrictions. Eat healthy, high-fiber foods. Drink 6 to 8 glasses of liquid each day. This will assist in keeping your bowels are regular. Pain management You may take Tylenol or acetaminophen or Ibuprofen (for example, Motrin, Advil etc.) Any pain prescription medication ordered should be taken as prescribed for moderate to severe pain. Call Dr. Christianson for any of the following: Severe pain not relieved by medication Fever of 101 or higher Excessive bleeding or drainage on dressing Inability to urinate Call the office at [phone] for a post operative appointment in 7 - 10 days. Additional directions Please also take the medication, Ursodiol 300mg capsule twice a day over the next month. This medication will be ready for you at your pharmacy. Please follow-up with a GI doctor, Dr. Mena. You will need an ERCP procedure in 3 months (the same one you had while you were in the hospital) to make sure there are no stones in your bile duct.You may also continue your home medications. Referrals: Finn Christianson MD [Staff Physician] - Ravin Lang [Primary Care Provider] - Inga Mena MD [Staff Physician] - 3 Weeks Disposition: HOME - Home Medications Comprehensive Discharge Medication List: Ambulatory Orders Dicyclomine HCl [Bentyl] 10 mg PO TID 04/05/15 Acyclovir 30 gm TP TID 07/14/15 Acetaminophen [Tylenol .Regular Strength -] 650 mg PO Q6H PRN #0 tablet Polyethylene Glycol 3350 [Miralax 119 gm Btl -] 17 gm PO BID bottle 10/16/16 Ursodiol [Actigal -] 300 mg PO BID #60 cap 10/16/16 This patient is new to me today: No Emergency Visit: No Critical Care patient: No - Discharge Referral Referred to [facility] No
== END 2016-10-16 17:18 | disposition home or self-care (01) | DRG 418 ==
LOC: JER 02:51 → JERBED 10:56 → J8W 18:34
PROVIDERS: ADMIT Internal Medicine; ATTEND Internal Medicine
PROC: 0FT44ZZ Resection of Gallbladder, Percutaneous Endoscopic Approach (ICD-10-PCS; principal; 2016-10-11 13:30)
PROC: 0FC98ZZ Extirpation of Matter from Common Bile Duct, Via Natural or Artificial Opening Endoscopic (ICD-10-PCS; 2016-10-15)
PROC: 0F798ZZ Dilation of Common Bile Duct, Via Natural or Artificial Opening Endoscopic (ICD-10-PCS; 2016-10-15)
PROC: 0F7D8DZ Dilation of Pancreatic Duct with Intraluminal Device, Via Natural or Artificial Opening Endoscopic (ICD-10-PCS; 2016-10-15)
DX: K80.00 Calculus of gallbladder with acute cholecystitis without obstruction (principal); R17 Unspecified jaundice; K58.8 Other irritable bowel syndrome; K63.5 Polyp of colon; E78.00 Pure hypercholesterolemia, unspecified; K21.9 Gastro-esophageal reflux disease without esophagitis; E78.5 Hyperlipidemia, unspecified; R73.03 Prediabetes; F41.8 Other specified anxiety disorders; K57.90 Diverticulosis of intestine, part unspecified, without perforation or abscess without bleeding; D72.828 Other elevated white blood cell count; E83.42 Hypomagnesemia; K59.09 Other constipation; E87.6 Hypokalemia; F17.210 Nicotine dependence, cigarettes, uncomplicated; Z87.42 Personal history of other diseases of the female genital tract
CPT/HCPCS: 36415; 74176-TC; 74181-TC; 74330-TC; 76705-TC; 78226-TC; 80048; 80053; 80076; 81003; 82150; 82248; 82550; 83690; 83735; 84100; 84484; 85025; 85027; 85610; 85730; 86140; 86850; 86900; 86901; 88304-TC; 93005; 93010; 94760; 99285-25; A9537; J1644